=== PATIENT | female | born 1945 | race African-American/Black ===

== ENCOUNTER 2019-08-07 06:20 | Day surgery (SDC) | payer OTHER, MEDICARE ==
[2019-08-05 08:38] VITALS: BMI 21.4
[2019-08-07] MEDS ORDERED: ONDANSETRON 4 MG/2 ML VIAL ONE (07:18)
[2019-08-07] MEDS ORDERED: DEXAMETHASONE SOD PHOSPHATE 4 MG/1 ML VIAL ONE (07:18)
[2019-08-07] MEDS ORDERED: LIDOCAINE HCL/PF 2% SDV 5ML VIAL ONE (07:18)
[2019-08-07] MEDS ORDERED: EPHEDRINE SULFATE/0.9% NACL/PF 50 MG/10 ML SYRINGE NR ONE (07:18)
[2019-08-07] MEDS ORDERED: SUCCINYLCHOLINE CHLORIDE 200 MG/10 ML SYRINGE ONE (07:19)
[2019-08-07] MEDS ORDERED: PROPOFOL 20 ML ONE (07:19)
[2019-08-07] MEDS ORDERED: ROPIVACAINE HCL 0.5% 30ML VIAL ONE (07:56)
--- NOTE | 2019-08-07 08:00 | HP ---
Satellite [facility] - Chief Complaint Chief Complaint: left shoulder pain - Past Medical History Allergies/Adverse Reactions: Allergies Allergy/AdvReac Type Severity Reaction Status Date / Time aspirin Allergy Severe Hives Verified 01/22/16 13:08 meperidine [From Demerol] Allergy Severe VERY LOW Verified 08/05/19 08:39 BLOOD PRESSURE Benzodiazepines AdvReac Severe EXTREMELY Verified 01/22/16 13:19 LOW HEART RATE - Current Medications Current Medications: Home Medications Medication Instructions Recorded Ascorbic Acid [Vitamin C -] 1,000 mg PO DAILY 01/22/16 Cholecalciferol (Vitamin D3) 5,000 unit PO DAILY 01/22/16 [Vitamin D3] Cyanocobalamin [Vitamin B12 -] 1,000 mcg PO DAILY 01/22/16 Folic Acid - 1 mg PO DAILY 01/22/16 Risedronate Sodium 35 mg PO WEEKLY 01/22/16 Vicodin Es 7.5-300 mg Tablet 1 tab PO Q8H 01/22/16 Amlodipine Besylate 5 mg PO DAILY 08/05/19 Levothyroxine Sodium [Levo-T] 25 mcg PO DAILY 08/05/19 Satellite Physical Exam - Physical Examination Vital Signs: Vital Signs Period Temp Pulse Resp BP Sys/Wiggins Pulse Ox Last 24 Hr 98.1 F 82 20 127/79 100 General Appearance: Well Nourished, Well Developed, Alert & Oriented x3 ENT: Clear Lung: Normal air movement Extremities: Other (left shoulder- + ttp, dec rom, + neer, + saldivar, nvi) Neurological: Intact, Alert, Oriented Satellite Impression/Plan - Impression/Plan Impression: left shoulder impingement Operative Procedure: left shoulder arthroscopy with AARTI AMBROSIO Date to be Performed: 08/07/19
[2019-08-07] MEDS ORDERED: ceFAZolin 2 GRAM PREMIX BAG IVPB ONE (08:50)
--- NOTE | 2019-08-07 09:27 | OP ---
Operative Note - Note: Operative Date: 08/07/19 Pre-Operative Diagnosis: left shoulder impingement syndrome, AC joint OA Operation: left shoulder arthroscopy, subacromial decompression, distal clavicle excision Post-Operative Diagnosis: Same as Pre-op Surgeon: Torin Glass Motion Picture Equipment Machinist: Herberth Weaver Anesthesiologist/SHAREPOINT TRAINER: Kaya Evangelista Anesthesia: General, Local Specimens Removed: shavings Estimated Blood Loss (mls): 20 Drains, Volume Out (mls): 0 Blood Volume Replaced (mls): 0 Fluid Volume Replaced (mls): 700 Operative Report Dictated: Yes
[2019-08-07] MEDS ORDERED: oxyCODONE HCL 5 MG TABLET PO PRN ×2 (09:37)
[2019-08-07] MEDS ORDERED: ONDANSETRON 4 MG/2 ML VIAL IVPUSH PRN (09:37)
[2019-08-07] MEDS ORDERED: LACTATED RINGERS SOLUTION 1,000 ML IV SCH (09:45)
[2019-08-07 12:29] VITALS: BP 142/79; PULSE 82; TEMP 98
--- NOTE | 2019-08-08 09:35 | OP ---
DATE OF OPERATION: 08/07/2019 PREOPERATIVE DIAGNOSES: Left shoulder impingement syndrome and acromioclavicular joint arthritis. POSTOPERATIVE DIAGNOSES: Left shoulder impingement syndrome and acromioclavicular joint arthritis. PROCEDURE: Left shoulder arthroscopy, subacromial decompression, distal clavicle excision. SURGEON: Sangeeta Buchanan MD PLATING OPERATOR: MATILDA Lopez ANESTHESIOLOGIST: Minnie Moctezuma MD ANESTHESIA: Left interscalene block and LMA anesthesia. DRAINS: None. COMPLICATIONS: None. BLOOD LOSS: Minimal. BLOOD GIVEN: None. FLUID REPLACEMENT: Plasma-Lyte, 700 mL. INDICATIONS: This patient is a 73-year-old female with preoperative diagnosis of left shoulder pain, impingement syndrome, AC joint arthritis. After understanding the potential risks, complications, alternatives and benefits of surgery versus nonsurgical treatment the patient elected to undergo this procedure. PROCEDURE: The patient was brought to the operating room and peripheral IV placed. IV sedation given. Ancef 2 g IV were given. A left interscalene block was performed. LMA anesthesia was induced. She was placed in the beach-chair position with ample padding throughout. The left upper extremity was put through a range of motion and it was seen to move smoothly. It was then prepped and draped in a sterile fashion. The bony landmarks were marked out with a marking pen. Posterior portal was established and diagnostic glenohumeral arthroscopy was performed. The patient's glenohumeral joint actually looked good. The labrum was a little frayed from the 9 o'clock to the 2 o'clock position. There was a little glenoid arthritis, about grade 2. The humeral head looked good with no arthritis. The biceps tendon was small but otherwise looked good. There was a small undersurface amount of fraying but no soledad rotator cuff tear. Next our attention turned to the subacromial space. The patient had a tremendous amount of inflammatory bursitis. Using a spinal needle the portal was established under direct visualization. A Green cannula was introduced into the subacromial space and a soft tissue bursectomy/extensive soft tissue debridement was performed with the ArthroCare wand. This revealed a very subacromial bony spur and also a very large subclavicular bony spur. Both were taken down with a 5.5-mm oval bur and fine tuning in reverse then done with the shaver to fine tune it further and to remove all bony debris. Then additional bursectomy was performed with the shaver. I then could directly visualize the top surface of the rotator cuff. This was seen to look quite good with a small amount of top surface fraying, but there was no tear and overall it did not need to be repaired. The area was copiously irrigated and washed out, again explored and again nothing was seen. Debris was removed. Excess saline removed. Arthroscopy portals were closed with 3-0 nylon sutures. The area was then washed and dried, covered with Aquacel dressing. Patient's arm was put into a sling. She was extubated. Total operative time was about 40 minutes and she was brought to the ambulatory recovery room in stable condition. SANGEETA BUCHANAN M.D. [id number]
--- NOTE | 2019-08-10 13:04 | PATH ---
Surgical Pathology Report Patient Name: NAZARIO PERALES Med. Rec. #: [id number] /Age/Gender: 1945 (Age: 73) / F Account: [id number] Location: [facility] Taken: 08/07/2019 Received: 08/07/2019 Reported: 08/10/2019 Physicians: Torin Glass M.D. Specimen(s) Received LEFT SHOULDER SHAVING Clinical History Left shoulder impingement Final Diagnosis LEFT SHOULDER SHAVINGS: PORTIONS OF SKELETAL MUSCLE, CARTILAGE, BONE, AND SYNOVIAL TISSUE WITH FOCAL REACTIVE CHANGE. Electronically Signed Yrn Graham M.D. Gross Description Received in formalin, labeled "left shoulder shavings," is a 5.5 x 4.0 x 0.4 cm. aggregate of jimenez-yellow soft tissue fragments. A shipping services sales representative portion is submitted in one cassette. DL/08/07/2019 saudi/08/07/2019
== END 2019-08-07 12:15 | disposition home or self-care (01) ==
LOC: JASU-SURG 06:20
PROVIDERS: ATTEND Orthopaedic Surgery
PROC: 0RNK4ZZ Release Left Shoulder Joint, Percutaneous Endoscopic Approach (ICD-10-PCS; 2019-08-07)
PROC: 0PBB4ZZ Excision of Left Clavicle, Percutaneous Endoscopic Approach (ICD-10-PCS; principal; 2019-08-07 08:00)
DX: M75.42 Impingement syndrome of left shoulder (principal); M19.012 Primary osteoarthritis, left shoulder
CPT/HCPCS: 88304-TC; 94760

== ENCOUNTER 2023-08-25 12:00 | Inpatient (IN) | payer OTHER, MEDICARE ==
[2023-08-25 14:24] LABS: EPI CELLS 14 /uL (0-25.1); HYALINE CASTS 50 /uL (0-3.1); URINE APPEARANCE TURBID; URINE BACTERIA 1930 /uL (0-1359); URINE BILIRUBIN NEGATIVE (NEGATIVE); URINE COLOR YELLOW; URINE GLUCOSE (UA) NEGATIVE (NEGATIVE); URINE KETONE NEGATIVE (NEGATIVE); URINE LEUK ESTERASE 3+ (NEGATIVE); URINE NITRITE NEGATIVE (NEGATIVE); URINE PROTEIN 3+ (NEGATIVE); URINE UROBILINOGEN 0.2 mg/dL (0.2-1.0); URINE WBC 35108 /uL (0-25.8)
[2023-08-25 14:26] LABS: URINE RBC 1089 /uL (0-23.9)
[2023-08-25 15:22] LABS: BASO % 0.6 % (0-2.0); EOS % 0.1 % (0-4.5); HEMATOCRIT 35.2 % (32.4-45.2); MCH 31.9 pg (25.7-33.7); MCHC 34.2 g/dl (32.0-36.0); MEAN CELL VOLUME 93.2 fl (80-96); MEAN PLT VOLUME 7.2 fl (7.5-11.1); MONO % 7.6 % (3.8-10.2); NEUT % 78.7 % (42.8-82.8); PLATELET COUNT 174 10^3/uL (134-434); RBC 3.78 M/mm3 (3.60-5.2); RDW 15.5 % (11.6-15.6); WHITE BLOOD COUNT 5.9 K/mm3 (4.0-10.0)
[2023-08-25] MEDS ORDERED: ACETAMINOPHEN INJECTION 100 ML IVPB ONE (15:29)
[2023-08-25] MEDS ORDERED: CEFTRIAXONE 1 GM/50 ML BAG ONE (15:29)
[2023-08-25] MEDS: CEFTRIAXONE 1 GM in DEXTROSE 5%-WATER - 100 ML IVPB ONE (15:48)
[2023-08-25] MEDS: ACETAMINOPHEN 1000 MG/100 ML BAG IVPB ONE (15:48)
[2023-08-25 15:50] LABS: POTASSIUM 4.3 mmol/L (3.5-5.1)
[2023-08-25 15:52] LABS: CALCIUM 9.3 mg/dL (8.5-10.1)
[2023-08-25 15:53] LABS: ALBUMIN 4.2 g/dl (3.4-5.0); BLOOD UREA NITROGEN 19.5 mg/dL (7-18)
[2023-08-25 15:55] LABS: CREATININE 1.4 mg/dL (0.55-1.3)
[2023-08-25 15:57] LABS: BILIRUBIN,TOTAL 2.4 mg/dL (0.2-1); TOT PROT 7.3 g/dl (6.4-8.2)
[2023-08-25] MEDS: SODIUM CHLORIDE 1,000 ML IV STA (17:11)
[2023-08-25 23:28] VITALS: BMI 18.8
[2023-08-26] MEDS: SODIUM CHLORIDE 0.45% 1,000 ML IV SCH (00:35)
[2023-08-26] MEDS: LEVOTHYROXINE NA 25 MCG TABLET (FP) PO SCH (08:50)
[2023-08-26] MEDS: POLYETHYLENE GLYCOL (HEALTHYLAX) 3350 17 GM PACKET PO SCH (09:13)
[2023-08-26] MEDS: ASCORBIC ACID 500 MG TABLET (FP) PO SCH (09:13)
[2023-08-26] MEDS: CYANOCOBALAMIN 1,000 MCG TABLET (FP) PO SCH (09:13)
[2023-08-26] MEDS: ALLOPURINOL 100 MG TABLET (FP) PO SCH (09:13)
[2023-08-26 10:17] LABS: BASO % 0.6 % (0-2.0); EOS % 0.4 % (0-4.5); HEMATOCRIT 32.5 % (32.4-45.2); HEMOGLOBIN 10.9 GM/dL (10.7-15.3); LYMPH % 15.1 % (8-40); MCHC 33.5 g/dl (32.0-36.0); MEAN CELL VOLUME 95.6 fl (80-96); MEAN PLT VOLUME 7.2 fl (7.5-11.1); NEUT % 76.9 % (42.8-82.8); PLATELET COUNT 147 10^3/uL (134-434); RDW 15.3 % (11.6-15.6); WHITE BLOOD COUNT 4.3 K/mm3 (4.0-10.0)
[2023-08-26 10:29] LABS: INR 1.11 (0.83-1.09); PROTHROMBIN TIME (PATIENT) 12.7 SEC (9.7-13.0)
[2023-08-26 10:32] LABS: ACTIVATED PTT 33.5 SECONDS (25.2-36.5)
[2023-08-26 10:38] LABS: POTASSIUM 3.7 mmol/L (3.5-5.1)
[2023-08-26 10:40] LABS: CALCIUM 8.8 mg/dL (8.5-10.1)
[2023-08-26 10:41] LABS: ALBUMIN 3.3 g/dl (3.4-5.0); BLOOD UREA NITROGEN 17.2 mg/dL (7-18); MAGNESIUM 1.7 mg/dL (1.8-2.4)
[2023-08-26 10:44] LABS: CREATININE 1.1 mg/dL (0.55-1.3); PHOSPHOROUS 2.9 mg/dL (2.5-4.9)
[2023-08-26 10:45] LABS: TOT PROT 5.8 g/dl (6.4-8.2)
[2023-08-26 10:46] LABS: BILIRUBIN,TOTAL 2.5 mg/dL (0.2-1)
[2023-08-26] MEDS: CHOLECALCIFEROL (VIT D3 5000 UNITS) 125 MCG TAB PO SCH (14:35)
[2023-08-26] MEDS: CEFTRIAXONE 1 GM in DEXTROSE 5%-WATER - 50 ML IVPB SCH (15:11)
[2023-08-26] MEDS: DOCUSATE SODIUM 100 MG CAPSULE (FP) PO SCH (21:15)
[2023-08-27] MEDS ORDERED: CHOLECALCIFEROL (VIT D3 5000 UNITS) 125 MCG TAB PO SCH (10:00)
[2023-08-27] MEDS: CHOLECALCIFEROL (VIT D3) 5000 UNITS (125 MCG) CAP PO SCH (11:22)
[2023-08-28] MEDS ORDERED: FENTANYL CITRATE/PF 50 MCG/ML VIAL ONE (13:44)
[2023-08-28] MEDS: SODIUM CHLORIDE 500 ML IV SCH (13:50)
[2023-08-28] MEDS: FENTANYL CITRATE/PF 50 MCG/ML VIAL IVPUSH ONE (13:57)
[2023-08-28] MEDS: ERTAPENEM SODIUM 0.5 GM in SODIUM CHLORIDE 50 ML IVPB SCH (16:10)
[2023-08-29] MEDS ORDERED: MELATONIN 5 MG TABLETS PO PRN (00:52)
[2023-08-29] MEDS: ACETAMINOPHEN 1000 MG/100 ML BAG IVPB ONE (01:08)
[2023-08-29] MEDS ORDERED: ACETAMINOPHEN 325 MG TABLET (FP) PO PRN (12:01)
[2023-08-29 13:18] LABS: BASO % 0.5 % (0-2.0); EOS % 0.8 % (0-4.5); HEMATOCRIT 36.2 % (32.4-45.2); HEMOGLOBIN 12.3 GM/dL (10.7-15.3); LYMPH % 23.1 % (8-40); MCH 31.8 pg (25.7-33.7); MCHC 33.9 g/dl (32.0-36.0); MEAN CELL VOLUME 93.6 fl (80-96); MEAN PLT VOLUME 7.7 fl (7.5-11.1); MONO % 7.4 % (3.8-10.2); NEUT % 68.2 % (42.8-82.8); PLATELET COUNT 190 10^3/uL (134-434); RBC 3.87 M/mm3 (3.60-5.2); RDW 15.5 % (11.6-15.6); WHITE BLOOD COUNT 5.1 K/mm3 (4.0-10.0)
[2023-08-29 13:34] LABS: POTASSIUM 3.3 mmol/L (3.5-5.1)
[2023-08-29 13:36] LABS: ALBUMIN 3.9 g/dl (3.4-5.0); CALCIUM 9.4 mg/dL (8.5-10.1)
[2023-08-29 13:40] LABS: CREATININE 1.2 mg/dL (0.55-1.3)
[2023-08-30 08:57] VITALS: RESP 18
[2023-08-30] MEDS: POTASSIUM CHLORIDE ORAL LIQUID 20 MEQ/15 ML PO ONE (14:32)
[2023-09-01 11:42] LABS: BASO % 0.3 % (0-2.0); HEMATOCRIT 36.3 % (32.4-45.2); HEMOGLOBIN 12.4 GM/dL (10.7-15.3); LYMPH % 23.7 % (8-40); MCH 31.9 pg (25.7-33.7); MEAN CELL VOLUME 93.8 fl (80-96); MEAN PLT VOLUME 7.4 fl (7.5-11.1); MONO % 6.8 % (3.8-10.2); NEUT % 68.2 % (42.8-82.8); PLATELET COUNT 172 10^3/uL (134-434); RBC 3.87 M/mm3 (3.60-5.2); RDW 15.5 % (11.6-15.6); WHITE BLOOD COUNT 4.3 K/mm3 (4.0-10.0)
[2023-09-01 12:06] LABS: POTASSIUM 4.1 mmol/L (3.5-5.1)
[2023-09-01 12:08] LABS: ALBUMIN 3.9 g/dl (3.4-5.0); BLOOD UREA NITROGEN 20.8 mg/dL (7-18); CALCIUM 9.2 mg/dL (8.5-10.1)
[2023-09-01 12:11] LABS: CREATININE 1.2 mg/dL (0.55-1.3)
[2023-09-01 12:13] LABS: BILIRUBIN,TOTAL 0.8 mg/dL (0.2-1); TOT PROT 7.6 g/dl (6.4-8.2)
[2023-09-01] MEDS: ERTAPENEM SODIUM 1 GM in SODIUM CHLORIDE 50 ML IVPB ONE (12:31)
[2023-09-01 14:52] VITALS: BP 125/69; PULSE 85; TEMP 99.1
== END 2023-09-01 15:23 | disposition home or self-care (01) | DRG 690 ==
LOC: JER 12:00 → JERBED 20:02 → J5S 22:26
PROVIDERS: ADMIT Internal Medicine; ATTEND Internal Medicine
PROC: 0T9030Z Drainage of Right Kidney with Drainage Device, Percutaneous Approach (ICD-10-PCS; principal; 2023-08-28)
DX: N13.6 Pyonephrosis (principal); I10 Essential (primary) hypertension; K21.9 Gastro-esophageal reflux disease without esophagitis; E03.9 Hypothyroidism, unspecified
CPT/HCPCS: 36415; 50432; 71045-TC-FY; 74176-TC; 80053; 81003; 83735; 84100; 85025; 85610; 85730; 86850; 86870; 86880; 86900; 86901; 86902; 87040; 87086; 87186; 93005; 93010; 97116-GP; 97161-GP; 99285-25; J0131

== ENCOUNTER 2023-10-13 22:48 | Inpatient (IN) | payer OTHER, MEDICARE ==
[2023-10-13] MEDS ORDERED: ACETAMINOPHEN INJECTION 100 ML ONE (23:52)
[2023-10-14] MEDS: ACETAMINOPHEN 1000 MG/100 ML BAG IVPB ONE (00:30)
[2023-10-14 00:40] LABS: BASO % 0.3 % (0-2.0); EOS % 0.5 % (0-4.5); HEMATOCRIT 35.5 % (32.4-45.2); HEMOGLOBIN 11.8 GM/dL (10.7-15.3); LYMPH % 4.9 % (8-40); MCHC 33.2 g/dl (32.0-36.0); MEAN CELL VOLUME 93.5 fl (80-96); MONO % 7.8 % (3.8-10.2); NEUT % 86.5 % (42.8-82.8); PLATELET COUNT 175 10^3/uL (134-434); RBC 3.79 M/mm3 (3.60-5.2); RDW 15.6 % (11.6-15.6); WHITE BLOOD COUNT 12.8 K/mm3 (4.0-10.0)
[2023-10-14 00:41] LABS: EPI CELLS 18 /uL (0-25.1); HYALINE CASTS 3 /uL (0-3.1); URINE APPEARANCE TURBID; URINE BACTERIA >9,000 /uL (0-1359); URINE BILIRUBIN NEGATIVE (NEGATIVE); URINE COLOR ORANGE; URINE GLUCOSE (UA) NEGATIVE (NEGATIVE); URINE KETONE TRACE (NEGATIVE); URINE LEUK ESTERASE 3+ (NEGATIVE); URINE NITRITE NEGATIVE (NEGATIVE); URINE PROTEIN 4+ (NEGATIVE); URINE RBC 2236 /uL (0-23.9); URINE WBC 4531 /uL (0-25.8)
[2023-10-14 01:03] LABS: INR 1.19 (0.83-1.09); PROTHROMBIN TIME (PATIENT) 13.6 SEC (9.7-13.0)
[2023-10-14 01:05] LABS: POTASSIUM 4.9 mmol/L (3.5-5.1)
[2023-10-14 01:06] LABS: ACTIVATED PTT 30.7 SECONDS (25.2-36.5); CALCIUM 9.3 mg/dL (8.5-10.1)
[2023-10-14 01:07] LABS: ALBUMIN 3.9 g/dl (3.4-5.0); BLOOD UREA NITROGEN 19.5 mg/dL (7-18)
[2023-10-14 01:10] LABS: CREATININE 1.4 mg/dL (0.55-1.3)
[2023-10-14] MEDS ORDERED: SULFAMETHOXAZOLE/TRIMETHOPRIM 800MG/160MG D.S. TABLET ONE (02:00)
[2023-10-14] MEDS: SULFAMETHOXAZOLE/TRIMETHOPRIM 800MG/160MG D.S. TABLET PO ONE (02:05)
[2023-10-14] MEDS ORDERED: ERTAPENEM SODIUM 1 GM VIAL ONE (03:21)
[2023-10-14] MEDS: SODIUM CHLORIDE 0.9% 500 ML INFUS.BAG IV ONE (03:48)
[2023-10-14] MEDS: ERTAPENEM SODIUM 1 GM in SODIUM CHLORIDE 50 ML IVPB ONE (03:48)
[2023-10-14] MEDS: MEROPENEM 1 GM in DEXTROSE 5%-WATER 100 ML IVPB ONE (03:49)
[2023-10-14 06:58] LABS: BILIRUBIN,DIRECT 0.2 mg/dL (0.0-0.2)
[2023-10-14 08:55] LABS: HEMATOCRIT 33.2 % (32.4-45.2); HEMOGLOBIN 11.2 GM/dL (10.7-15.3); MCH 31.7 pg (25.7-33.7); MCHC 33.8 g/dl (32.0-36.0); MEAN CELL VOLUME 93.8 fl (80-96); PLATELET COUNT 158 10^3/uL (134-434); RBC 3.54 M/mm3 (3.60-5.2); RDW 15.3 % (11.6-15.6); WHITE BLOOD COUNT 8.5 K/mm3 (4.0-10.0)
[2023-10-14 09:12] LABS: POTASSIUM 4.4 mmol/L (3.5-5.1)
[2023-10-14 09:14] LABS: CALCIUM 8.4 mg/dL (8.5-10.1)
[2023-10-14 09:15] LABS: ALBUMIN 3.5 g/dl (3.4-5.0); BLOOD UREA NITROGEN 19.6 mg/dL (7-18); MAGNESIUM 1.8 mg/dL (1.8-2.4)
[2023-10-14 09:18] LABS: CREATININE 1.2 mg/dL (0.55-1.3)
[2023-10-14] MEDS: SODIUM CHLORIDE 1,000 ML IV SCH (09:18)
[2023-10-14 09:19] LABS: BILIRUBIN,TOTAL 2.8 mg/dL (0.2-1); TOT PROT 6.3 g/dl (6.4-8.2)
[2023-10-14] MEDS: ALLOPURINOL 100 MG TABLET (FP) PO SCH (21:12)
[2023-10-15] MEDS: LEVOTHYROXINE NA 25 MCG TABLET (FP) PO SCH (06:05)
[2023-10-15] MEDS ORDERED: ERTAPENEM SODIUM 0.5 GM in SODIUM CHLORIDE 50 ML IVPB SCH (10:00)
[2023-10-15] MEDS: ERTAPENEM SODIUM 0.5 GM in SODIUM CHLORIDE 50 ML IVPB SCH (10:55)
[2023-10-15 13:18] LABS: BASO % 0.1 % (0-2.0); EOS % 0.6 % (0-4.5); HEMATOCRIT 31.3 % (32.4-45.2); HEMOGLOBIN 10.4 GM/dL (10.7-15.3); LYMPH % 11.5 % (8-40); MCH 31.1 pg (25.7-33.7); MCHC 33.3 g/dl (32.0-36.0); MEAN CELL VOLUME 93.3 fl (80-96); MEAN PLT VOLUME 8.1 fl (7.5-11.1); MONO % 8.2 % (3.8-10.2); NEUT % 79.6 % (42.8-82.8); PLATELET COUNT 151 10^3/uL (134-434); RBC 3.36 M/mm3 (3.60-5.2); RDW 15.5 % (11.6-15.6); WHITE BLOOD COUNT 5.7 K/mm3 (4.0-10.0)
[2023-10-15 13:32] LABS: POTASSIUM 3.8 mmol/L (3.5-5.1)
[2023-10-15 13:34] LABS: ALBUMIN 3.1 g/dl (3.4-5.0); CALCIUM 8.7 mg/dL (8.5-10.1)
[2023-10-15 13:35] LABS: BLOOD UREA NITROGEN 13.8 mg/dL (7-18)
[2023-10-15 13:38] LABS: CREATININE 1.1 mg/dL (0.55-1.3)
[2023-10-15 13:40] LABS: BILIRUBIN,TOTAL 1.7 mg/dL (0.2-1); TOT PROT 5.7 g/dl (6.4-8.2)
[2023-10-17 07:28] LABS: BASO % 0.8 % (0-2.0); EOS % 0.9 % (0-4.5); HEMATOCRIT 31.2 % (32.4-45.2); HEMOGLOBIN 10.7 GM/dL (10.7-15.3); LYMPH % 23.5 % (8-40); MCH 31.7 pg (25.7-33.7); MCHC 34.2 g/dl (32.0-36.0); MEAN CELL VOLUME 92.7 fl (80-96); MEAN PLT VOLUME 7.9 fl (7.5-11.1); MONO % 9.2 % (3.8-10.2); NEUT % 65.6 % (42.8-82.8); PLATELET COUNT 161 10^3/uL (134-434); RBC 3.37 M/mm3 (3.60-5.2); RDW 15.1 % (11.6-15.6); WHITE BLOOD COUNT 3.6 K/mm3 (4.0-10.0)
[2023-10-17 07:42] LABS: POTASSIUM 4.3 mmol/L (3.5-5.1)
[2023-10-17 07:47] LABS: CALCIUM 8.8 mg/dL (8.5-10.1)
[2023-10-17 07:48] LABS: ALBUMIN 2.9 g/dl (3.4-5.0); BLOOD UREA NITROGEN 10.4 mg/dL (7-18)
[2023-10-17 07:52] LABS: BILIRUBIN,TOTAL 0.9 mg/dL (0.2-1); TOT PROT 5.6 g/dl (6.4-8.2)
[2023-10-17 13:23] VITALS: BMI 18.8
[2023-10-18 12:47] VITALS: RESP 18
[2023-10-18 15:26] VITALS: BP 102/72; PULSE 94; TEMP 98.4
== END 2023-10-18 18:40 | disposition home or self-care (01) | DRG 690 ==
LOC: JER 22:48 → JERBED 10-14 02:55 → J4S 10-14 06:41
PROVIDERS: ADMIT Internal Medicine; ATTEND Internal Medicine
DX: N39.0 Urinary tract infection, site not specified (principal); E44.0 Moderate protein-calorie malnutrition; K56.600 Partial intestinal obstruction, unspecified as to cause; R55 Syncope and collapse; I10 Essential (primary) hypertension; E03.9 Hypothyroidism, unspecified; Z93.3 Colostomy status; Z93.6 Other artificial openings of urinary tract status; N13.9 Obstructive and reflux uropathy, unspecified; K21.9 Gastro-esophageal reflux disease without esophagitis
CPT/HCPCS: 36415; 70450-TC; 71045-TC-FY; 74176-TC; 76775-TC; 80053; 81003; 82248; 82550; 83036; 83735; 84100; 84484; 85025; 85027; 85610; 85730; 87086; 87186; 93005; 93010; 97116-GP; 97161-GP; 99285-25; J0131

== ENCOUNTER 2023-11-24 15:10 | Inpatient (IN) | payer OTHER, MEDICARE ==
[2023-11-24] MEDS ORDERED: ONDANSETRON 4 MG/2 ML VIAL ONE (16:34)
[2023-11-24] MEDS: ONDANSETRON 4 MG/2 ML VIAL IVPB ONE (16:38)
[2023-11-24 16:43] LABS: BASO % 0.5 % (0-2.0); EOS % 0.2 % (0-4.5); HEMATOCRIT 37.3 % (32.4-45.2); HEMOGLOBIN 12.5 GM/dL (10.7-15.3); LYMPH % 19.5 % (8-40); MCH 30.9 pg (25.7-33.7); MCHC 33.5 g/dl (32.0-36.0); MEAN CELL VOLUME 92.1 fl (80-96); MEAN PLT VOLUME 7.5 fl (7.5-11.1); MONO % 8.8 % (3.8-10.2); PLATELET COUNT 207 10^3/uL (134-434); RBC 4.05 M/mm3 (3.60-5.2); RDW 15.5 % (11.6-15.6); WHITE BLOOD COUNT 4.9 K/mm3 (4.0-10.0)
[2023-11-24 17:39] LABS: POTASSIUM 4.3 mmol/L (3.5-5.1)
[2023-11-24 17:41] LABS: CALCIUM 9.5 mg/dL (8.5-10.1)
[2023-11-24 17:42] LABS: BLOOD UREA NITROGEN 26.4 mg/dL (7-18); MAGNESIUM 1.7 mg/dL (1.8-2.4)
[2023-11-24 17:45] LABS: CREATININE 1.7 mg/dL (0.55-1.3)
[2023-11-24 17:46] LABS: BILIRUBIN,TOTAL 2.2 mg/dL (0.2-1); TOT PROT 6.9 g/dl (6.4-8.2)
[2023-11-24 17:50] LABS: N-TERMINAL BNP 225.5 pg/ml (5-450)
[2023-11-24] MEDS: SODIUM CHLORIDE 0.9% 1000 ML INFUS.BAG IV ONE ×2 (18:50→19:43)
[2023-11-24 19:29] LABS: EPI CELLS 2 /uL (0-25.1); HYALINE CASTS 0 /uL (0-3.1); PH,URINE 5.5 (5.0-8.0); URINE APPEARANCE TURBID; URINE BACTERIA 8134 /uL (0-1359); URINE BILIRUBIN NEGATIVE (NEGATIVE); URINE COLOR YELLOW; URINE GLUCOSE (UA) NEGATIVE (NEGATIVE); URINE KETONE 1+ (NEGATIVE); URINE LEUK ESTERASE 3+ (NEGATIVE); URINE NITRITE NEGATIVE (NEGATIVE); URINE PROTEIN 2+ (NEGATIVE); URINE RBC 83 /uL (0-23.9); URINE WBC 4102 /uL (0-25.8)
[2023-11-24] MEDS: ERTAPENEM SODIUM 0.5 GM in SODIUM CHLORIDE 50 ML IVPB ONE (21:31)
[2023-11-24 22:09] LABS: URINE CRYSTALS NONE SEEN /hpf
[2023-11-24] MEDS: SODIUM CHLORIDE 1,000 ML IV SCH (23:07)
[2023-11-25] MEDS ORDERED: SODIUM CHLORIDE 250 ML IV STA (04:56)
[2023-11-25 09:27] LABS: BASO % 0.1 % (0-2.0); HEMOGLOBIN 10.3 GM/dL (10.7-15.3); LYMPH % 11.8 % (8-40); MCHC 33.4 g/dl (32.0-36.0); MEAN CELL VOLUME 92.9 fl (80-96); MEAN PLT VOLUME 7.2 fl (7.5-11.1); MONO % 6.8 % (3.8-10.2); NEUT % 81.3 % (42.8-82.8); PLATELET COUNT 164 10^3/uL (134-434); RBC 3.34 M/mm3 (3.60-5.2); RDW 15.3 % (11.6-15.6); WHITE BLOOD COUNT 5.3 K/mm3 (4.0-10.0)
[2023-11-25 10:46] LABS: CHLORIDE 114 mmol/L (98-107); POTASSIUM 4.9 mmol/L (3.5-5.1); SODIUM 143 mmol/L (136-145)
[2023-11-25 10:54] LABS: CALCIUM 8.6 mg/dL (8.5-10.1)
[2023-11-25 10:55] LABS: ANION GAP 12 mmol/L (4-13); BLOOD UREA NITROGEN 21.9 mg/dL (7-18); CO2 16 mmol/L (21-32); MAGNESIUM 1.6 mg/dL (1.8-2.4)
[2023-11-25 10:58] LABS: CREATININE 1.3 mg/dL (0.55-1.3)
[2023-11-25 11:13] LABS: GLUCOSE,RANDOM 36 mg/dL (74-106)
[2023-11-25] MEDS: LEVOTHYROXINE SODIUM 100 MCG 5 ML VIAL IVPUSH SCH (11:17)
[2023-11-25] MEDS: MAGNESIUM SULFATE IN WATER 2 GM/50 ML IVPB IVPB ONE (11:53)
[2023-11-25] MEDS: DEXTROSE 5%-LACTATED RINGERS 1,000 ML IV SCH (11:53)
[2023-11-25] MEDS: DEXTROSE 50%-WATER 25 GM/50 ML DISP.SYRIN IVPUSH PRN (11:53)
[2023-11-25] MEDS ORDERED: DEXTROSE 50%-WATER - 25 GM/50 ML VIAL IVPUSH PRN (12:17)
[2023-11-25] MEDS: DEXTROSE 50%-WATER - 25 GM/50 ML VIAL IVPUSH ONE (12:20)
[2023-11-25] MEDS: ERTAPENEM SODIUM 0.5 GM in SODIUM CHLORIDE 50 ML IVPB SCH (13:16)
[2023-11-25] MEDS: LACTATED RINGERS SOLUTION 1,000 ML/1,000 ML INFUS.BAG IV SCH (22:31)
[2023-11-26 09:52] LABS: BASO % 0.1 % (0-2.0); EOS % 0.6 % (0-4.5); HEMATOCRIT 28.4 % (32.4-45.2); HEMOGLOBIN 9.6 GM/dL (10.7-15.3); LYMPH % 17.7 % (8-40); MCH 31.2 pg (25.7-33.7); MCHC 33.7 g/dl (32.0-36.0); MEAN CELL VOLUME 92.8 fl (80-96); MEAN PLT VOLUME 7.3 fl (7.5-11.1); MONO % 8.3 % (3.8-10.2); NEUT % 73.3 % (42.8-82.8); PLATELET COUNT 152 10^3/uL (134-434); RBC 3.06 M/mm3 (3.60-5.2); RDW 15.5 % (11.6-15.6); WHITE BLOOD COUNT 3.7 K/mm3 (4.0-10.0)
[2023-11-26 10:14] LABS: POTASSIUM 3.9 mmol/L (3.5-5.1)
[2023-11-26 10:18] LABS: CALCIUM 8.6 mg/dL (8.5-10.1)
[2023-11-26 10:19] LABS: BLOOD UREA NITROGEN 13.2 mg/dL (7-18); MAGNESIUM 1.9 mg/dL (1.8-2.4)
[2023-11-26 10:22] LABS: CREATININE 1.1 mg/dL (0.55-1.3)
[2023-11-26] MEDS: DEXTROSE 5%-LACTATED RINGERS 1,000 ML IV SCH (15:39)
[2023-11-27 08:53] LABS: BASO % 0.2 % (0-2.0); EOS % 1.3 % (0-4.5); HEMATOCRIT 30.8 % (32.4-45.2); HEMOGLOBIN 10.4 GM/dL (10.7-15.3); LYMPH % 25.5 % (8-40); MCHC 33.8 g/dl (32.0-36.0); MEAN CELL VOLUME 91.9 fl (80-96); MEAN PLT VOLUME 6.8 fl (7.5-11.1); MONO % 9.6 % (3.8-10.2); NEUT % 63.4 % (42.8-82.8); PLATELET COUNT 150 10^3/uL (134-434); RBC 3.35 M/mm3 (3.60-5.2); RDW 15.6 % (11.6-15.6); WHITE BLOOD COUNT 3.2 K/mm3 (4.0-10.0)
[2023-11-27 09:16] LABS: POTASSIUM 3.7 mmol/L (3.5-5.1)
[2023-11-27 09:19] LABS: BLOOD UREA NITROGEN 7.6 mg/dL (7-18); CALCIUM 8.4 mg/dL (8.5-10.1)
[2023-11-27 09:20] LABS: MAGNESIUM 1.4 mg/dL (1.8-2.4)
[2023-11-27 09:22] LABS: CREATININE 1.1 mg/dL (0.55-1.3)
[2023-11-27 09:24] LABS: BILIRUBIN,TOTAL 1.2 mg/dL (0.2-1)
[2023-11-27 09:33] LABS: ALBUMIN 2.5 g/dl (3.4-5.0); TOT PROT 4.6 g/dl (6.4-8.2)
[2023-11-27] MEDS: HEPARIN NA (PORCINE) 5,000 UNITS/ML 1ML VIAL SQ SCH (14:31)
[2023-11-27] MEDS: MAGNESIUM 2GM/50ML STERILE WATER IVPB IVPB ONE (15:50)
[2023-11-27] MEDS ORDERED: DEXTROSE 50%-WATER 25 GM/50 ML DISP.SYRIN IVPUSH PRN (23:48)
[2023-11-28 10:15] LABS: BASO % 0.3 % (0-2.0); EOS % 1.1 % (0-4.5); HEMATOCRIT 32.3 % (32.4-45.2); HEMOGLOBIN 10.8 GM/dL (10.7-15.3); LYMPH % 22.6 % (8-40); MCH 30.8 pg (25.7-33.7); MCHC 33.3 g/dl (32.0-36.0); MEAN CELL VOLUME 92.4 fl (80-96); MEAN PLT VOLUME 7.1 fl (7.5-11.1); MONO % 8.4 % (3.8-10.2); NEUT % 67.6 % (42.8-82.8); PLATELET COUNT 146 10^3/uL (134-434); RBC 3.49 M/mm3 (3.60-5.2); RDW 15.2 % (11.6-15.6); WHITE BLOOD COUNT 3.6 K/mm3 (4.0-10.0)
[2023-11-28 10:38] LABS: POTASSIUM 3.6 mmol/L (3.5-5.1)
[2023-11-28 10:45] LABS: BLOOD UREA NITROGEN 4.6 mg/dL (7-18); CALCIUM 8.4 mg/dL (8.5-10.1)
[2023-11-28 10:46] LABS: ALBUMIN 2.7 g/dl (3.4-5.0)
[2023-11-28 10:49] LABS: CREATININE 0.9 mg/dL (0.55-1.3)
[2023-11-28 10:51] LABS: BILIRUBIN,TOTAL 1.4 mg/dL (0.2-1)
[2023-11-29 11:18] VITALS: BMI 18.9
[2023-11-30 10:00] LABS: BASO % 0.8 % (0-2.0); HEMATOCRIT 29.1 % (32.4-45.2); LYMPH % 30.9 % (8-40); MCH 31.2 pg (25.7-33.7); MCHC 34.3 g/dl (32.0-36.0); MEAN PLT VOLUME 7.2 fl (7.5-11.1); MONO % 9.5 % (3.8-10.2); NEUT % 56.8 % (42.8-82.8); PLATELET COUNT 155 10^3/uL (134-434); RDW 15.3 % (11.6-15.6); WHITE BLOOD COUNT 2.7 K/mm3 (4.0-10.0)
[2023-11-30 10:18] LABS: CHLORIDE 110 mmol/L (98-107); POTASSIUM 3.3 mmol/L (3.5-5.1); SODIUM 143 mmol/L (136-145)
[2023-11-30 10:22] LABS: ALBUMIN 2.7 g/dl (3.4-5.0); ANION GAP 3 mmol/L (4-13); CALCIUM 8.5 mg/dL (8.5-10.1); CO2 31 mmol/L (21-32); MAGNESIUM 1.4 mg/dL (1.8-2.4)
[2023-11-30 10:23] LABS: GLUCOSE,RANDOM 85 mg/dL (74-106)
[2023-11-30 10:24] LABS: BLOOD UREA NITROGEN 2.8 mg/dL (7-18)
[2023-11-30 10:25] LABS: SGOT/AST 26 U/L (15-37); SGPT/ALT 22 U/L (13-61)
[2023-11-30 10:26] LABS: PHOSPHOROUS 2.4 mg/dL (2.5-4.9)
[2023-11-30 10:27] LABS: BILIRUBIN,TOTAL 1.2 mg/dL (0.2-1); TOT PROT 4.8 g/dl (6.4-8.2)
[2023-11-30 10:28] LABS: ALK PHOS 67 U/L (45-117)
[2023-11-30] MEDS ORDERED: KCL 10 MEQ IVPB 10 MEQ/100 ML INFUS.BAG IVPB SCH (10:30)
[2023-11-30] MEDS: MAGNESIUM SULFATE IN WATER 2 GM/50 ML IVPB IVPB ONE (12:45)
[2023-11-30] MEDS: KCL 10 MEQ IVPB 10 MEQ/100 ML INFUS.BAG IVPB SCH (14:07)
[2023-11-30] MEDS: POTASSIUM PHOSPHATE 15 MM in SODIUM CHLORIDE 250 ML IVPB ONE (14:32)
[2023-11-30] MEDS: POTASSIUM CHLORIDE ORAL LIQUID 20 MEQ/15 ML PO ONE (14:33)
[2023-11-30] MEDS: DEXTROSE 5%-LACTATED RINGERS 1,000 ML IV SCH (18:45)
[2023-12-01] MEDS: LEVOTHYROXINE NA 25 MCG TABLET (FP) PO SCH (06:09)
[2023-12-02 09:21] LABS: BASO % 0.6 % (0-2.0); EOS % 0.9 % (0-4.5); HEMATOCRIT 31.6 % (32.4-45.2); HEMOGLOBIN 10.5 GM/dL (10.7-15.3); LYMPH % 28.4 % (8-40); MCHC 33.3 g/dl (32.0-36.0); MEAN CELL VOLUME 93.1 fl (80-96); MEAN PLT VOLUME 7.7 fl (7.5-11.1); NEUT % 63.1 % (42.8-82.8); PLATELET COUNT 168 10^3/uL (134-434); RBC 3.39 M/mm3 (3.60-5.2); RDW 15.3 % (11.6-15.6); WHITE BLOOD COUNT 3.5 K/mm3 (4.0-10.0)
[2023-12-02 09:34] LABS: POTASSIUM 3.8 mmol/L (3.5-5.1)
[2023-12-02 09:40] LABS: ALBUMIN 2.7 g/dl (3.4-5.0)
[2023-12-02 09:42] LABS: BLOOD UREA NITROGEN 3.7 mg/dL (7-18); CALCIUM 8.9 mg/dL (8.5-10.1)
[2023-12-02 09:45] LABS: BILIRUBIN,TOTAL 1.2 mg/dL (0.2-1)
[2023-12-03 09:07] VITALS: BP 119/78; PULSE 82; RESP 19; TEMP 99.2
== END 2023-12-03 15:05 | disposition home or self-care (01) | DRG 388 ==
LOC: JER 15:10 → JERBED 21:52 → J5S 11-25 02:52
PROVIDERS: ADMIT Internal Medicine; ATTEND Internal Medicine
PROC: 0T25X0Z Change Drainage Device in Kidney, External Approach (ICD-10-PCS; principal; 2023-11-30)
DX: K56.609 Unspecified intestinal obstruction, unspecified as to partial versus complete obstruction (principal); E43 Unspecified severe protein-calorie malnutrition; N17.9 Acute kidney failure, unspecified; N39.0 Urinary tract infection, site not specified; Z68.1 Body mass index [BMI] 19.9 or less, adult; I10 Essential (primary) hypertension; K21.9 Gastro-esophageal reflux disease without esophagitis; E03.9 Hypothyroidism, unspecified; R62.7 Adult failure to thrive
CPT/HCPCS: 0241U-QW; 36415; 50435; 71045-TC-FY; 74019-TC-FY; 74176-TC; 74251-TC-FY; 80048; 80053; 81003; 82962; 83605; 83735; 83880; 84100; 84443; 84484; 85025; 85730; 86850; 86870; 86880; 86900; 86901; 86902; 87086; 87186; 93005; 93010; 97116-GP; 97161-GP; 99285-25; J1644

== ENCOUNTER 2024-01-23 12:45 | Inpatient (IN) | payer OTHER, MEDICARE ==
[2024-01-23 12:50] VITALS: RESP 18
[2024-01-23 16:18] LABS: BASO % 0.4 % (0-2.0); HEMATOCRIT 33.4 % (32.4-45.2); HEMOGLOBIN 11.3 GM/dL (10.7-15.3); LYMPH % 31.1 % (8-40); MCH 30.7 pg (25.7-33.7); MCHC 33.7 g/dl (32.0-36.0); MEAN CELL VOLUME 91.1 fl (80-96); MEAN PLT VOLUME 7.7 fl (7.5-11.1); MONO % 8.1 % (3.8-10.2); NEUT % 59.4 % (42.8-82.8); PLATELET COUNT 183 10^3/uL (134-434); RBC 3.67 M/mm3 (3.60-5.2); WHITE BLOOD COUNT 4.3 K/mm3 (4.0-10.0)
[2024-01-23 16:26] LABS: URINE APPEARANCE Turbid; URINE BILIRUBIN Negative (NEGATIVE); URINE COLOR Light yellow; URINE GLUCOSE (UA) Negative (NEGATIVE); URINE KETONE Negative (NEGATIVE); URINE LEUK ESTERASE 3+ (NEGATIVE); URINE NITRITE Negative (NEGATIVE); URINE PROTEIN 2+ (NEGATIVE); URINE UROBILINOGEN 0.2 mg/dL (0.2-1.0)
[2024-01-23 16:37] LABS: EPI CELLS 115 /uL (0-25.1); HYALINE CASTS 20 /uL (0-3.1); URINE BACTERIA 36802 /uL (0-1359); URINE CRYSTALS PRESENT /hpf; URINE RBC 752 /uL (0-23.9); URINE WBC 22456 /uL (0-25.8); YEAST NONE SEEN (NEGATIVE)
[2024-01-23 16:59] LABS: CALCIUM 9.8 mg/dL (8.5-10.1)
[2024-01-23 17:00] LABS: BLOOD UREA NITROGEN 33.7 mg/dL (7-18)
[2024-01-23 17:03] LABS: CREATININE 1.5 mg/dL (0.55-1.3)
[2024-01-23 17:05] LABS: BILIRUBIN,TOTAL 1.4 mg/dL (0.2-1)
[2024-01-23] MEDS: SODIUM CHLORIDE 0.9% 500 ML INFUS.BAG IV ONE (17:35)
[2024-01-23] MEDS ORDERED: CEFTRIAXONE 1 G/50 ML PREMIX 50 ML IVPB ONE (17:43)
[2024-01-23] MEDS: CEFTRIAXONE 1 GM in DEXTROSE 5%-WATER - 100 ML IVPB ONE (17:59)
[2024-01-23] MEDS ORDERED: ACETAMINOPHEN 325 MG TABLET (FP) PO PRN (20:28)
[2024-01-23] MEDS: ALLOPURINOL 100 MG TABLET (FP) PO SCH (22:06)
[2024-01-23] MEDS: MELATONIN 5 MG TABLETS PO PRN (22:06)
[2024-01-23] MEDS: DOCUSATE SODIUM 100 MG CAPSULE (FP) PO SCH (22:06)
[2024-01-23] MEDS: ERTAPENEM SODIUM 1 GM in SODIUM CHLORIDE 50 ML IVPB SCH (23:51)
[2024-01-24] MEDS: SODIUM CHLORIDE 1,000 ML IV SCH (00:13)
[2024-01-24 02:51] VITALS: BMI 16.5
[2024-01-24] MEDS: LEVOTHYROXINE NA 25 MCG TABLET (FP) PO SCH (06:03)
[2024-01-24 09:40] LABS: BASO % 0.2 % (0-2.0); EOS % 1.2 % (0-4.5); HEMATOCRIT 31.6 % (32.4-45.2); HEMOGLOBIN 10.4 GM/dL (10.7-15.3); LYMPH % 24.7 % (8-40); MEAN PLT VOLUME 7.3 fl (7.5-11.1); MONO % 6.8 % (3.8-10.2); NEUT % 67.1 % (42.8-82.8); PLATELET COUNT 176 10^3/uL (134-434); RBC 3.47 M/mm3 (3.60-5.2); RDW 15.8 % (11.6-15.6); WHITE BLOOD COUNT 3.7 K/mm3 (4.0-10.0)
[2024-01-24] MEDS: amLODIPine BESYLATE 5 MG TABLET (FP) PO SCH (10:05)
[2024-01-24] MEDS: POLYETHYLENE GLYCOL (HEALTHYLAX) 3350 17 GM PACKET PO SCH (10:05)
[2024-01-24 10:07] LABS: POTASSIUM 4.5 mmol/L (3.5-5.1)
[2024-01-24 10:10] LABS: CALCIUM 8.8 mg/dL (8.5-10.1)
[2024-01-24 10:11] LABS: ALBUMIN 3.2 g/dl (3.4-5.0); BLOOD UREA NITROGEN 25.3 mg/dL (7-18)
[2024-01-24 10:14] LABS: CREATININE 1.2 mg/dL (0.55-1.3)
[2024-01-24 10:16] LABS: BILIRUBIN,TOTAL 1.2 mg/dL (0.2-1)
[2024-01-24] MEDS: ERTAPENEM SODIUM 0.5 GM in SODIUM CHLORIDE 50 ML IVPB SCH (13:05)
[2024-01-24] MEDS: HEPARIN NA (PORCINE) 5,000 UNITS/ML 1ML VIAL SQ SCH (21:18)
[2024-01-26 17:37] VITALS: BP 114/66; PULSE 75; TEMP 98
== END 2024-01-26 18:05 | DRG 699 ==
LOC: JER 12:45 → JERBED 17:30 → J5S 21:36
PROVIDERS: ADMIT Internal Medicine; ATTEND Internal Medicine
PROC: 02HV33Z Insertion of Infusion Device into Superior Vena Cava, Percutaneous Approach (ICD-10-PCS; principal; 2024-01-26)
PROC: B548ZZA Ultrasonography of Superior Vena Cava, Guidance (ICD-10-PCS; 2024-01-26)
DX: T83.512A Infection and inflammatory reaction due to nephrostomy catheter, initial encounter (principal); N39.0 Urinary tract infection, site not specified; I10 Essential (primary) hypertension; K21.9 Gastro-esophageal reflux disease without esophagitis; E03.9 Hypothyroidism, unspecified; Y84.6 Urinary catheterization as the cause of abnormal reaction of the patient, or of later complication, without mention of misadventure at the time of the procedure
CPT/HCPCS: 36415; 36569; 80053; 81003; 85025; 87086; 87186; 87635; 93005; 93010; 97116-GP; 97162-GP; 99285-25; J1644

== ENCOUNTER 2024-09-12 16:47 | Inpatient (IN) | payer OTHER, MEDICARE ==
[2024-09-12] MEDS: SODIUM CHLORIDE 0.9% 500 ML INFUS.BAG IV ONE (18:50)
[2024-09-12 19:02] LABS: BG HCT 39.0 % (32.4-45.2); VENOUS BASE EXCESS -6.1 mmol/L (-2-2); VENOUS O2 SATURATION 33.3 % (70-80); VENOUS PCO2 44.4 mmHg (38-52); VENOUS PH 7.281 (7.310-7.410)
[2024-09-12 19:07] LABS: INR 1.14 (0.83-1.09); PROTHROMBIN TIME (PATIENT) 12.4 SEC (9.7-13.0)
[2024-09-12 19:08] LABS: ABSOLUTE IMMATURE GRANULOCYTES 0.02 x10^3/uL (0.0-0.031); BASOPHILS # 0.01 x10^3/uL (0.01-0.08); EOSINOPHIL % 0.2 % (0.7-5.8); EOSINOPHILS # 0.01 x10^3/uL (0.04-0.36); MCHC 33.6 g/dl (32.2-35.5); MEAN CELL VOLUME 91.1 fl (79.4-94.8); MEAN PLT VOLUME 9.9 fl (9.4-12.3); MONOCYTE # 0.32 x10^3/uL (0.24-0.86); MONOCYTE % 7.4 % (4.7-12.5); RDW 13.3 % (12.4-16.6)
[2024-09-12 19:10] LABS: ACTIVATED PTT 29.3 SECONDS (25.2-36.5)
[2024-09-12 19:36] LABS: CO2 23.0 mmol/L (21-32)
[2024-09-12 19:37] LABS: GLUCOSE,RANDOM 123.0 mg/dL (74-106)
[2024-09-12 19:40] LABS: CREATININE 1.8 mg/dL (0.55-1.3); SGOT/AST 48.0 U/L (15-37); SGPT/ALT 56.0 U/L (13-61)
[2024-09-12 19:41] LABS: TOT PROT 7.2 g/dl (6.4-8.2)
[2024-09-12 19:42] LABS: ALK PHOS 89.0 U/L (45-117)
[2024-09-12] MEDS ORDERED: CEFTRIAXONE 1 GM/50 ML BAG ONE (19:53)
[2024-09-12 20:06] LABS: EPI CELLS 4 /uL (0-25.1); HYALINE CASTS 1 /uL (0-3.1); URINE APPEARANCE TURBID; URINE BACTERIA 2934 /uL (0-1359); URINE BILIRUBIN NEGATIVE (NEGATIVE); URINE COLOR YELLOW; URINE GLUCOSE (UA) NEGATIVE (NEGATIVE); URINE KETONE NEGATIVE (NEGATIVE); URINE LEUK ESTERASE 3+ (NEGATIVE); URINE NITRITE NEGATIVE (NEGATIVE); URINE PROTEIN 3+ (NEGATIVE); URINE RBC 208 /uL (0-23.9); URINE UROBILINOGEN 0.2 mg/dL (0.2-1.0); URINE WBC 1821 /uL (0-25.8)
[2024-09-13] MEDS: LEVOTHYROXINE NA 25 MCG TABLET (FP) PO SCH (06:03)
[2024-09-13 06:21] LABS: ARTERIAL BLD GAS O2 SATURATION 96.9 % (95-98); ARTERIAL BLOOD GAS BASE EXCESS -3.9 mmol/L (-2-2); ARTERIAL BLOOD GAS PCO2 33.30 mmHg (35-45); ARTERIAL BLOOD GAS PO2 89.1 mmHg (80-100); BG HCT 41.0 % (32.4-45.2); O2 CONTENT 1.89 % vol
[2024-09-13 08:04] LABS: ABSOLUTE IMMATURE GRANULOCYTES 0.01 x10^3/uL (0.0-0.031); BASOPHILS # 0.01 x10^3/uL (0.01-0.08); EOSINOPHIL % 0.8 % (0.7-5.8); EOSINOPHILS # 0.03 x10^3/uL (0.04-0.36); MCHC 34.2 g/dl (32.2-35.5); MEAN CELL VOLUME 89.9 fl (79.4-94.8); MEAN PLT VOLUME 10.1 fl (9.4-12.3); MONOCYTE # 0.34 x10^3/uL (0.24-0.86); MONOCYTE % 9.2 % (4.7-12.5); RDW 13.2 % (12.4-16.6)
[2024-09-13 09:06] LABS: CO2 24.0 mmol/L (21-32); GLUCOSE,RANDOM 86.0 mg/dL (74-106)
[2024-09-13 09:08] LABS: CREATININE 1.4 mg/dL (0.55-1.3); SGOT/AST 29.0 U/L (15-37); SGPT/ALT 42.0 U/L (13-61)
[2024-09-13 09:10] LABS: TOT PROT 6.3 g/dl (6.4-8.2)
[2024-09-13 09:11] LABS: ALK PHOS 81.0 U/L (45-117)
[2024-09-13] MEDS: FOLIC ACID 1 MG TABLET (FP) PO SCH (10:43)
[2024-09-13] MEDS: CEFTRIAXONE 1 GM in DEXTROSE 5%-WATER - 50 ML IVPB SCH (10:43)
[2024-09-13] MEDS: ALLOPURINOL 100 MG TABLET (FP) PO SCH (10:43)
[2024-09-13] MEDS: CYANOCOBALAMIN 1,000 MCG TABLET (FP) PO SCH (11:24)
[2024-09-13] MEDS: SODIUM CHLORIDE 0.45% 1,000 ML IV SCH (14:51)
[2024-09-14 08:27] LABS: MCHC 33.1 g/dl (32.2-35.5); MEAN CELL VOLUME 90.9 fl (79.4-94.8); MEAN PLT VOLUME 9.6 fl (9.4-12.3); RDW 13.4 % (12.4-16.6)
[2024-09-14 08:56] LABS: CO2 26.0 mmol/L (21-32); GLUCOSE,RANDOM 85.0 mg/dL (74-106)
[2024-09-14 08:59] LABS: CREATININE 1.0 mg/dL (0.55-1.3); SGOT/AST 30.0 U/L (15-37); SGPT/ALT 37.0 U/L (13-61)
[2024-09-14 09:01] LABS: TOT PROT 6.2 g/dl (6.4-8.2)
[2024-09-14 09:02] LABS: ALK PHOS 83.0 U/L (45-117)
[2024-09-15 17:13] LABS: HIV INTERPRETATION NEGATIVE (NEGATIVE)
[2024-09-15 18:50] LABS: HCV DIAGNOSTIC IN-HOUSE W/RFLX NON-REACTIVE (NONREACTIVE)
[2024-09-15] MEDS: ONDANSETRON 4 MG/2 ML VIAL IVPUSH ONE (22:09)
[2024-09-16 10:22] LABS: ABSOLUTE IMMATURE GRANULOCYTES 0.02 x10^3/uL (0.0-0.031); BASOPHILS # 0.01 x10^3/uL (0.01-0.08); EOSINOPHIL % 0.4 % (0.7-5.8); EOSINOPHILS # 0.02 x10^3/uL (0.04-0.36); MCHC 33.5 g/dl (32.2-35.5); MEAN CELL VOLUME 93.0 fl (79.4-94.8); MEAN PLT VOLUME 10.1 fl (9.4-12.3); MONOCYTE # 0.45 x10^3/uL (0.24-0.86); MONOCYTE % 8.3 % (4.7-12.5); RDW 13.3 % (12.4-16.6)
[2024-09-16 11:35] LABS: CO2 25.0 mmol/L (21-32); GLUCOSE,RANDOM 90.0 mg/dL (74-106)
[2024-09-16 11:38] LABS: CREATININE 1.35 mg/dL (0.55-1.3); SGOT/AST 24.0 U/L (15-37); SGPT/ALT 30.0 U/L (13-61)
[2024-09-16 11:39] LABS: TOT PROT 6.0 g/dl (6.4-8.2)
[2024-09-16 11:40] LABS: ALK PHOS 88.0 U/L (45-117)
[2024-09-16] MEDS: ONDANSETRON 4 MG/2 ML VIAL IVPUSH ONE (20:23)
[2024-09-17 11:27] VITALS: BMI 14.4
[2024-09-18] MEDS: MULTIVITAMINS THER W-MINERALS COMBO TABLET (FP) PO SCH (10:10)
[2024-09-19] MEDS: ENOXAPARIN NA (PORCINE) 30 MG/0.3 ML DISP.SYRIN SQ SCH (10:25)
[2024-09-19] MEDS: PANTOPRAZOLE 40 MG TABLET PO SCH (15:29)
[2024-09-19] MEDS: ONDANSETRON 4 MG/2 ML VIAL IVPUSH PRN (20:51)
[2024-09-20 08:36] LABS: ABSOLUTE IMMATURE GRANULOCYTES 0.03 x10^3/uL (0.0-0.031); BASOPHILS # 0.01 x10^3/uL (0.01-0.08); EOSINOPHIL % 0.2 % (0.7-5.8); EOSINOPHILS # 0.01 x10^3/uL (0.04-0.36); MCHC 32.4 g/dl (32.2-35.5); MEAN CELL VOLUME 93.8 fl (79.4-94.8); MEAN PLT VOLUME 9.6 fl (9.4-12.3); MONOCYTE # 0.38 x10^3/uL (0.24-0.86); MONOCYTE % 7.2 % (4.7-12.5); RDW 13.0 % (12.4-16.6)
[2024-09-20 09:22] LABS: GLUCOSE,RANDOM 49 mg/dL (74-106); TOT PROT 6.0 g/dl (6.4-8.2)
[2024-09-20 09:23] LABS: CO2 20 mmol/L (21-32)
[2024-09-20 09:25] LABS: ALK PHOS 105 U/L (40-150)
[2024-09-20 09:28] LABS: CREATININE 1.29 mg/dL (0.55-1.3); SGOT/AST 67 U/L (5-34); SGPT/ALT 43 U/L (0-55)
[2024-09-22] MEDS: ACETAMINOPHEN 325 MG TABLET (FP) PO PRN (01:10)
[2024-09-22 09:25] LABS: ABSOLUTE IMMATURE GRANULOCYTES 0.02 x10^3/uL (0.0-0.031); BASOPHILS # 0.01 x10^3/uL (0.01-0.08); EOSINOPHIL % 0.2 % (0.7-5.8); EOSINOPHILS # 0.01 x10^3/uL (0.04-0.36); MCHC 33.7 g/dl (32.2-35.5); MEAN CELL VOLUME 91.9 fl (79.4-94.8); MEAN PLT VOLUME 9.4 fl (9.4-12.3); MONOCYTE # 0.34 x10^3/uL (0.24-0.86); MONOCYTE % 6.5 % (4.7-12.5); RDW 13.1 % (12.4-16.6)
[2024-09-22 10:08] LABS: GLUCOSE,RANDOM 52.0 mg/dL (74-106); TOT PROT 6.2 g/dl (6.4-8.2)
[2024-09-22 10:09] LABS: CO2 21.0 mmol/L (21-32)
[2024-09-22 10:13] LABS: SGPT/ALT 98.0 U/L (0-55)
[2024-09-22 10:14] LABS: CREATININE 1.66 mg/dL (0.55-1.3); SGOT/AST 130.0 U/L (5-34)
[2024-09-22 10:22] LABS: ALK PHOS 118.0 U/L (40-150)
[2024-09-22] MEDS ORDERED: SODIUM CHLORIDE 0.45% 1,000 ML IV SCH (10:30)
[2024-09-22] MEDS: SIMETHICONE 80 MG TAB.CHEW (FP) PO PRN (13:00)
[2024-09-22] MEDS: DEXTROSE 5%-0.45% SALINE 1,000 ML IV SCH (13:09)
[2024-09-22] MEDS: PANTOPRAZOLE 40 MG TABLET PO SCH (21:29)
[2024-09-23] MEDS: DEXTROSE 5%-LACTATED RINGERS 1,000 ML IV SCH (15:53)
[2024-09-24 10:14] LABS: GLUCOSE,RANDOM 99.0 mg/dL (74-106)
[2024-09-24 10:15] LABS: CO2 22.0 mmol/L (21-32)
[2024-09-24 10:20] LABS: CREATININE 1.4 mg/dL (0.55-1.3)
[2024-09-24 14:40] VITALS: BP 99/68; PULSE 71; RESP 18; TEMP 98.1
== END 2024-09-24 17:19 | DRG 871 ==
LOC: JER 16:47 → JERBED 18:20 → J6S 23:00
PROVIDERS: ADMIT Internal Medicine; ATTEND Internal Medicine
PROC: 0T25X0Z Change Drainage Device in Kidney, External Approach (ICD-10-PCS; principal; 2024-09-24)
PROC: 0TP5X0Z Removal of Drainage Device from Kidney, External Approach (ICD-10-PCS; 2024-09-24)
DX: A41.89 Other specified sepsis (principal); E43 Unspecified severe protein-calorie malnutrition; N39.0 Urinary tract infection, site not specified; N17.9 Acute kidney failure, unspecified; R64 Cachexia; Z68.1 Body mass index [BMI] 19.9 or less, adult; N13.30 Unspecified hydronephrosis; R19.7 Diarrhea, unspecified; K21.9 Gastro-esophageal reflux disease without esophagitis; I12.9 Hypertensive chronic kidney disease with stage 1 through stage 4 chronic kidney disease, or unspecified chronic kidney disease; N18.9 Chronic kidney disease, unspecified; R31.9 Hematuria, unspecified; B96.20 Unspecified Escherichia coli [E. coli] as the cause of diseases classified elsewhere; B95.2 Enterococcus as the cause of diseases classified elsewhere; Z85.43 Personal history of malignant neoplasm of ovary; Z85.528 Personal history of other malignant neoplasm of kidney; Z85.038 Personal history of other malignant neoplasm of large intestine; Z85.048 Personal history of other malignant neoplasm of rectum, rectosigmoid junction, and anus
CPT/HCPCS: 36415; 36600; 50435; 71045-TC-FY; 71250-TC; 74019-TC-FY; 74176-TC; 80048; 80053; 81003; 82803; 82962; 83605; 83735; 84100; 84484; 85025; 85610; 85730; 86803; 86850; 86870; 86880; 86900; 86901; 86902; 87040; 87086; 87324; 87389; 87449; 87637-QW; 93005; 93010; 97116-GP; 97162-GP; 99291